=== PATIENT | male | born 1955 | race Caucasian/White ===

== ENCOUNTER → 2018-07-01 | Outpatient (CLI) | payer MEDICARE, OTHER | LOC: CPPFTMAIN 13:28 | PROVIDERS: ATTEND Family Medicine | DX: R06.09 Other forms of dyspnea (principal) | CPT/HCPCS: 94060; 94726; 94729 ==

== ENCOUNTER → 2022-07-04 | Outpatient (CLI) | payer MEDICARE ==
[2022-07-04 16:10] LABS: INR 0.9 (<1.2); Partial Thromboplastin Time 24.6 sec (22.0-30.0); Prothrombin Time 9.8 sec (9.0-12.0)
[2022-07-04 23:17] LABS: Appearance,Urine Clear (Clear); Bilirubin,Urine Negative (Negative); Blood,Urine Negative (Negative); Color,Urine Yellow (Yellow); Ketones,Urine Negative (Negative); Nitrite,Urine Negative (Negative); Specific Gravity,Urine 1.014 (1.001-1.030); Urobilinogen,Urine 0.2 (0.2,1.0)
[2022-07-04 23:37] LABS: HCT 43.4 % (39.6-50.0); HGB 14.2 g/dL (13.0-17.0); MCH 30.7 pg (27.0-32.0); MCHC 32.7 g/dL (32.0-37.0); MCV 93.7 fL (80.0-97.0); Mean Platelet Volume 9.8 fL (9.5-12.2); NRBC Per 100 WBC 0 /100 WBCS (0.0-0.0); Platelet Count 238 X 10*3/uL (140-440); RBC 4.63 X 10*6/uL (4.40-5.60); RDW 13.6 % (11.5-14.5); WBC 5.62 X 10*3/uL (4.50-10.00)
[2022-07-04 23:45] LABS: Albumin 4.6 g/dL (3.8-4.9); Albumin/Globulin Ratio 2.3 (1.60-3.17); Anion Gap 10.2 mmol/L (10.00-18.00); BUN/Creat Ratio 16.25 Ratio (12.00-20.00); Blood Urea Nitrogen 13.8 mg/dL (9.0-27.0); Calcium 9.3 mg/dL (8.7-10.3); Carbon Dioxide 26.2 mmol/L (20.0-27.5); Non-African American GFR(CKD) 91.5 (60.0-200.0); Potassium 4.6 mmol/L (3.5-5.5); Total Bilirubin 0.4 mg/dL (0.30-1.20); Total Protein 6.6 g/dL (6.2-8.2)
== END | disposition home or self-care (01) ==
LOC: LABPAT 15:29
PROVIDERS: ATTEND Orthopaedic Surgery Sports Medicine
DX: Z01.812 Encounter for preprocedural laboratory examination (principal); M17.12 Unilateral primary osteoarthritis, left knee; R00.1 Bradycardia, unspecified; R94.31 Abnormal electrocardiogram [ECG] [EKG]
CPT/HCPCS: 80053; 81003; 85027; 85610; 85730; 87070; 93005

== ENCOUNTER 2022-08-02 09:10 | Observation (INO) | payer MEDICARE ==
[2022-07-30 18:13] VITALS: BMI 30.8
[~2022-08-02 09:10] MED LIST: ACETAMINOPHEN TAB 500 MG TAB PO PRN; GABAPENTIN 300 MG CAP PO PRN; LACTATED RINGERS 1,000 ML IV SCH; MELOXICAM 7.5 MG TAB PO PRN; ONDANSETRON 4 MG/2 ML VIAL IVP PRN; TRANEXAMIC ACID IN NACL,ISO-OS 1,000 MG in SALINE 1 100ML.BAG IVPB PRN; fentaNYL (PF) 50 MCG/ML 2 ML AMP IV PRN
[2022-08-02] MEDS ORDERED: DEXAMETHASONE SOD PHOSPHATE 4 MG/ML 1 ML VIAL IVP ONE (10:18)
[2022-08-02] MEDS ORDERED: MIDAZOLAM 2 MG/2 ML VIAL IVP ONE (10:38)
[2022-08-02] MEDS ORDERED: ONDANSETRON 4 MG/2 ML VIAL IVP PRN (11:19)
[2022-08-02] MEDS ORDERED: traMADol 50 MG TAB PO PRN (11:19)
[2022-08-02] MEDS ORDERED: bisacodyL 10 MG SUPP RECTAL PRN (11:19)
[2022-08-02] MEDS ORDERED: hydrOXYzine pamoate 25 MG CAP PO PRN (11:19)
[2022-08-02] MEDS ORDERED: HYDROmorphone 0.5 MG/0.5 ML SYRINGE IVP PRN ×2 (11:19)
[2022-08-02] MEDS ORDERED: NA PHOS,M-B/NA PHOS,DI-BA 133 ML ENEMA RECTAL PRN (11:19)
[2022-08-02] MEDS ORDERED: MAGNESIUM HYDROXIDE 2,400 MG/10 ML CUP PO PRN (11:19)
[2022-08-02] MEDS ORDERED: TEMAZEPAM 15 MG CAP PO PRN (11:19)
[2022-08-02] MEDS ORDERED: NALOXONE 0.4 MG/ML 1 ML VIAL IV PRN (11:19)
[2022-08-02] MEDS ORDERED: diazePAM 5 MG TAB PO PRN (11:19)
[2022-08-02] MEDS ORDERED: ACETAMINOPHEN TAB 325 MG TAB PO PRN (11:19)
[2022-08-02] MEDS ORDERED: oxyCODONE-APAP 7.5-325MG 1 EACH TAB PO PRN (11:22)
[2022-08-02] MEDS ORDERED: ROPIVACAINE 5 MG/ML 30 ML VIAL ONE (11:33)
[2022-08-02] MEDS ORDERED: fentaNYL (PF) 50 MCG/ML 2 ML AMP ONE (11:33)
[2022-08-02] MEDS ORDERED: PROPOFOL 10 MG/ML 20 ML VIAL IV ONE (11:33)
[2022-08-02] MEDS ORDERED: MIDAZOLAM 2 MG/2 ML VIAL ONE (11:33)
[2022-08-02] MEDS ORDERED: TRANEXAMIC ACID IN NACL,ISO-OS 1,000 MG/100 ML BAG ONE (11:33)
[2022-08-02] MEDS ORDERED: KETAMINE 10 MG/ML 20 ML VIAL ONE (11:33)
[2022-08-02] MEDS ORDERED: DEXAMETHASONE SOD PHOSPHATE 4 MG/ML 1 ML VIAL ONE (11:33)
[2022-08-02] MEDS ORDERED: LACTATED RINGERS 1,000 ML IV ONE (12:00)
[2022-08-02] MEDS ORDERED: ROPIVACAINE 1,100 MG, SODIUM CHLORIDE 0.9% 500 ML 330 ML, EMPTY PAIN BALL 1 EACH MISCELLANE PRN ×2 (14:00)
[2022-08-02] MEDS: HYDROmorphone 0.5 MG/0.5 ML SYRINGE IVP PRN ×3 (14:40→15:09)
[2022-08-02] MEDS: LACTATED RINGERS 1,000 ML IV SCH ×2 (15:42→21:05)
[2022-08-02] MEDS: HYDROmorphone 1 MG/ML 1 ML SYRINGE IVP PRN ×3 (16:05→23:43)
--- NOTE | 2022-08-02 16:17 | XR ---
EXAMINATION TYPE: XR knee limited LT DATE OF EXAM: 08/02/2022 COMPARISON: NONE HISTORY: 66-year-old male evaluation for postoperative abnormality and alignment TECHNIQUE: 2 views FINDINGS: Images show placement of left total knee arthroplasty. Both distal femoral and proximal tib ial components of the prosthesis are well seated without fracture. Alignment grossly anatomic. Anteri or soft tissue swelling with scattered soft tissue air as well as intra-articular air related to rece nt operation. IMPRESSION: Uncomplicated postoperative appearance left total knee arthroplasty.
--- NOTE | 2022-08-02 17:19 | P.CONS ---
History of Present Illness - Reason for Consult Consult date: 08/02/22 Medical management Requesting physician: Uday Lamb - History of Present Illness History of Presenting Illness: Patient is a very pleasant 66-year-old male with a past medical history of CAD status post stent, hyperlipidemia, obstructive sleep apnea previously on home CPAP states stopped using a couple years ago, history of provoked DVT in 1992, and occasional marijuana use. Patient currently admitted under orthopedic surgery team and is status postleft total knee replacement. We have been consulted for medical management throughout hospitalization. Patient seen and fully evaluated at bedside. Patient currently reports uncontrolled postoperative pain to left knee and being medicated by RN at this time. Otherwise patient denies having any other complaints at this time including headache, lightheadedness, dizziness, chest pain, palpitations, shortness of breath, cough or congestion, abdominal pain or experiencing any episodes of postoperative nausea or vomiting. Movement and sensation remains intact to lower extremities. Review of systems: Pertinent positives and negatives as discussed in HPI, a complete review of systems was performed and all other systems are negative. Physical exam: Vital signs reviewed and stable. General: Nontoxic, no distress and appears stated age. Derm: Skin warm and dry, normal coloration for ethnicity. Head: Atraumatic, normocephalic and symmetric. Eyes: EOMs intact, no lid lag, and anicteric sclera Mouth: no lip lesions, mucus membranes moist Cardiovascular: regular rate and rhythm with normal S1S2, no murmur, positive posterior tibial pulses bilaterally, and cap refill < 2 seconds. Lungs: Respirations even, regular, and unlabored on room air. Lungs CTA bilaterally, no rhonchi, no rales, no wheezing, and no accessory muscle usage. Abdominal: soft, nontender to palpation, no guarding, no appreciable o rganomegaly Ext: movement and sensation intact. No gross muscle atrophy, no edema, no contractures. Postoperative dressing and Freddy wrap in place to left knee with ice pack. Neuro: Speech clear, face symmetrical and CN II-XII grossly intact with no noted focal neuro deficits Psych: Alert and oriented to person, place, time, and situation. Appropriate and pleasant affect. Assessment and Plan of Care: Status post left total knee arthroplasty Management per primary admitting orthopedic surgery team including DVT prophylaxis, pain management, wound/dressing care, weightbearing, and PT/OT. Patient currently on DVT prophylaxis with aspirin 81 mg twice a day. History of CAD status post stent Hyperlipidemia Obstructive sleep apnea BPH History of provoked DVT Home medications reviewed and reordered.patient to continue with atorvastatin 40 mg daily, Cymbalta 60 mg daily post scar 5 mg daily, Neurontin 400 mg 4 times daily, and Flomax 0.4 mg daily. Order placed for morning CBC, BMP, and magnesium. Will follow-up on these results and place additional orders as needed based upon these findings. Patient was seen independently by Nurse Practitioner. This document was prepared using [employer] dictation software. Please allow for errors in alligator trapper while rare they do occur. Thank you for allowing us to participate in the care of this pleasant patient. Do not hesitate to contact us with questions. Someone can be reached from the [facility] hospitalist group all hours of the day at [phone] or via [employer]. I reviewed the documentation as provided by the PAMELA above, who is the original author of this note. I agree with the documented assessment and plan, with the following changes: none Past Medical History Past Medical History: Coronary Artery Disease (CAD), COPD, Deep Vein Thrombosis (DVT), Hyperlipidemia, Osteoarthritis (OA), Prostate Disorder, Sleep Apnea/CPAP/BIPAP Additional Past Medical History / Comment(s): hx. DVT in 1992, back problems, hx. colon polyps History of Any Multi-Drug Resistant Organisms: None Reported Past Surgical History: Appendectomy, Heart Catheterization With Stent, Orthopedic Surgery, Tonsillectomy Additional Past Surgical History / Comment(s): arthroscopy knee, STENTS X3 LAD Past Anesthesia/Blood Transfusion Reactions: No Reported Reaction Date of Last Stent Placement:: 2018 Past Psychological History: Depression Smoking Status: Never smoker Past Alcohol Use History: None Reported Past Drug Use History: Marijuana Additional Drug Use History / Comment(s): daily use - Past Family History Father Family Medical History: Cancer Additional Family Medical History / Comment(s): MESOTHELIOMA Mother Additional Family Medical History / Comment(s): CARDIAC VALVE DISORDER Sister(s) Family Medical History: Cancer Additional Family Medical History / Comment(s): PANCREATIC CA. THYROID CA Medications and Allergies Home Medications Medication Instructions Recorded Confirmed Type HYDROcodone/APAP 10-325MG [[place] 1 tab PO Q6H PRN 12/06/15 07/30/22 History 10-325] Tamsulosin [Flomax] 0.4 mg PO DAILY 12/06/15 07/30/22 History tiZANidine [Zanaflex] 4 mg PO DIRECTED PRN 12/06/15 07/30/22 History Atorvastatin [Lipitor] 40 mg PO DAILY 07/30/22 07/30/22 History DULoxetine HCL [Cymbalta] 60 mg PO DAILY 07/30/22 07/30/22 History Finasteride [Proscar] 5 mg PO DAILY 07/30/22 07/30/22 History Gabapentin [Neurontin] 400 mg PO QID 07/30/22 07/30/22 History methocarbamoL [Methocarbamol] 750 mg PO DAILY 07/30/22 07/30/22 History Celecoxib [CeleBREX] 100 mg PO DAILY 08/02/22 08/02/22 History Aspirin [Adult Low Dose Aspirin EC] 81 mg PO BID #60 tab 08/03/22 Rx Docusate [Colace] 100 mg PO BID #60 capsule 08/03/22 Rx Ondansetron [Zofran] 4 mg PO Q8HR PRN #21 tab 08/03/22 Rx oxyCODONE-APAP 7.5-325MG [Percocet 1 tab PO Q4HR PRN #42 tab 08/03/22 Rx 7.5-325 mg] Allergies Allergy/AdvReac Type Severity Reaction Status Date / Time codeine Allergy Rash/Hives Verified 08/02/22 09:50 Physical Exam Vitals: Vital Signs Temp Pulse Pulse Pulse Resp BP Pulse Ox 08/02/22 15:56 97.7 F 68 18 132/64 96 08/02/22 15:30 66 16 124/76 98 08/02/22 15:15 70 16 127/78 98 08/02/22 15:02 66 16 134/84 98 08/02/22 14:45 67 16 125/77 98 08/02/22 14:30 72 16 130/81 98 08/02/22 14:15 73 16 125/78 98 08/02/22 14:00 69 16 130/80 98 08/02/22 13:43 97.9 F 69 16 119/74 95 08/02/22 10:55 65 16 138/85 99 08/02/22 09:58 97.5 F L 67 16 133/77 97 Intake and Output 08/02/22 08/02/22 08/02/22 06:59 14:59 22:59 Intake Total 1999 Output Total 100 Balance 1900 Intake: IV 1999 Output: Estimated Blood Loss 100 Other: Weight 99.7 kg 99.7 kg Results CBC & Chem 7: 08/03/22 04:39 08/03/22 04:39
[2022-08-02] MEDS: oxyCODONE-APAP 7.5-325MG 1 EACH TAB PO PRN (18:02)
[2022-08-02] MEDS: GABAPENTIN 400 MG CAP PO SCH ×2 (18:02→20:54)
--- NOTE | 2022-08-02 20:22 | P.ANPRN ---
Procedure Note - Anesthesia - Nerve Block Performed Left Adductor Canal Infusion Time Out Performed: Yes Date of Procedure: 08/02/22 Procedure Start Time: 10:38 Procedure Stop Time: 10:46 Location of Patient: PreOp Indication: Acute Post-Operative Pain, Requested by Surgeon Sedation Type: Sedate with meaningful contact maintained Preparation: Sterile Prep, Sterile Dressing Position: Supine Catheter: Indwelling Needle Types: On-Q Needle Gauge: 21 Ultrasound used to visualize needle placement: Yes Ultrasound used to observe medication spread: Yes Blood Aspirated: No Pain Paresthesia on Injection Noted: No Resistance on Injection: Normal Image Stored and Saved: Yes Events: Uneventful and Well Tolerated (Ropivacaine 0.5% 20 mL plus dexamethasone 4 mg)
--- NOTE | 2022-08-02 20:23 | P.ANPRN ---
Procedure Note - Anesthesia - Nerve Block Performed Left iPack Single Time Out Performed: Yes Date of Procedure: 08/02/22 Procedure Start Time: 10:47 Procedure Stop Time: 10:51 Location of Patient: PreOp Indication: Acute Post-Operative Pain, Requested by Surgeon Sedation Type: Sedate with meaningful contact maintained Preparation: Sterile Prep Position: Supine Needle Types: Pajunk Needle Gauge: 21 Ultrasound used to visualize needle placement: Yes Ultrasound used to observe medication spread: Yes Blood Aspirated: No Pain Paresthesia on Injection Noted: No Resistance on Injection: Normal Image Stored and Saved: Yes Events: Uneventful and Well Tolerated (Ropivacaine 0.5% 20 mL plus dexamethasone 4 mg)
[2022-08-02] MEDS: ASPIRIN 81 MG PO SCH (20:54)
[2022-08-02] MEDS ORDERED: SENNOSIDES-DOCUSATE SODIUM 1 EACH TAB PO SCH (21:00)
--- NOTE | 2022-08-02 21:55 | OP ---
OPERATIVE REPORT DATE OF SERVICE : 08/02/2022 PREOPERATIVE DIAGNOSIS: Left knee osteoarthrosis. POSTOPERATIVE DIAGNOSIS: Left knee osteoarthrosis. PROCEDURE PERFORMED: Left total knee arthroplasty. ANESTHESIA: Spinal sedation. ESTIMATED BLOOD LOSS: 100 mL. TOURNIQUET TIME: 54 minutes at 250 mmHg. COMPLICATIONS: None apparent. DRAINS: None. DISPOSITION: Postanesthesia care unit. INDICATIONS: Mariano is a very pleasant 66-year-old male with longstanding history of left knee pain. History and physical examination are consistent with advanced left knee osteoarthrosis. He has been through significant nonoperative management at this point. Further treatment options were discussed. He decided to go forward with the left total knee arthroplasty. Risks of procedure were discussed with him in detail. These risks included, but were not limited to risk of infection, nerve damage, bleeding, pain, and a small risk of deep vein thrombosis which could lead to fatal pulmonary embolism. There is also a small risk of loosening of the implant, which could require revision operation. The patient understands these risks. All of his questions were answered to his satisfaction. Appropriate informed consent was obtained. DESCRIPTION OF PROCEDURE: The patient was identified in the preoperative holding area. Surgical site was marked by both the patient and myself. He was given 2 g of Ancef IV for prophylactic purposes. He was then transferred to the operative suite. He was placed supine on the operating room table. A spinal anesthetic was then administered and dosed per the Anesthesia Department without apparent complication. Examination under anesthesia was then performed. The patient was 3 to 5 degrees shy of full extension. He had 100 degrees of flexion. Medial collateral ligament, lateral collateral ligament, and posterior cruciate ligaments were stable. Tourniquet was then placed high on the left upper thigh well-padded in preparation for surgery. The patient's left lower extremity was then prepped and draped in usual sterile fashion. Standard surgical pause was undertaken to ensure that we were operating the correct site and that appropriate preoperative antibiotics had been given. All staff in the room were in agreement, and we proceeded. The outlines of the patella were marked with a surgical pen. A planned 12 cm vertical incision centered over the patella was marked with a surgical pen. The leg was then exsanguinated with an Esmarch dressing. The knee was then flexed, and the tourniquet was inflated to 250 mmHg. The total tourniquet time for the procedure was 54 minutes. Incision was then made with a 10-blade scalpel. Dissection was carried down sharply overlying the fascia. Great care was taken to minimize the skin flaps. The knee was then exposed using a standard medial parapatellar approach. A small cuff of quadriceps tendon was then left for suturing. He was in a bit of varus preoperatively. A standard medial release was then made. Superficial medial collateral ligament was dissected off the bone around to the posterior aspect of the proximal tibia. The medial meniscus was then excised as well. The lateral meniscus was also released anteriorly. The leg was then externally rotated. The patella was everted. The knee was flexed. Retractors were then placed to protect the collateral ligaments. I then proceeded to remove the infrapatellar fat pad. This was excised sharply tangentially with fibers of the patellar tendon. I then proceeded to remove the peripheral osteophytes. This was done with a rongeur. I then proceeded with the distal femoral resection. He did have a flexion contracture. A planned 11 mm resection was then done. The femoral canal was then entered in the midline of the femur approximately 10 mm anterior to the origin of the posterior cruciate ligament. The jarett was then advanced down to the center of the femur and placed intramedullary. Based on the preoperative radiographs, the angle between the anatomic and mechanical axis of the femur was approximately 4 to 5 degrees. The valgus angle of the distal femoral cutting guide was then set at 4 degrees for the left knee. The distal femoral cutting guide was then advanced over the intramedullary jarett. This was seated firmly against the femur. I then as mentioned planned to take 11 mm off the distal femur. The cutting block was then secured onto the femur with pins. Jig was then removed. The distal femoral cut was made through the slot of the block. The pins were removed. The distal femoral cutting block was removed. The accuracy of the distal femoral cuts was checked with 2 flat bars. I then proceeded with femoral sizing. Posterior referencing sizing guide was held firmly against the resected distal surface of the femur. The posterior condyles were resting on the posterior plane of the guide. The sizing stylus was then placed onto the anterior femur. The size was measured as a size 11. I then assessed for femoral rotation. Plan was for 3 degrees of external rotation. Three degrees of external rotation was placed onto the jig. These holes were then marked. I then confirmed the rotation by 3 separate methods. This was done using epicondylar axis as well as Whitesides line and posterior referencing. It was deemed that the external rotation was proper. I then went forward and placed the femoral cutting block. This was placed over the previously-placed pin holes. The [place] wing was then placed onto the anterior slots to ensure that we would not notch the anterior femur with the anterior femoral cut. I then proceeded with the anterior femoral cut. This was flush with the anterior cortex of the femur. The posterior cuts were then made followed by the anterior chamfer cut, then the posterior chamfer cut. The cutting block was then removed. Throughout the resection, the collateral ligaments were protected with retractors. I then placed a trial size 11 femur. It was slightly wide, but the narrow fit very nicely, and it fit flush with the distal end of the femur. The drill holes were then made. I then proceeded with the tibial cut. I planned for cruciate-retaining knee. The guide was placed and set for varus, valgus, and for slope. The height was set for approximately 2 mm resection from the medial tibial plateau, which was the lower side. I was happy with the alignment and the amount of resection. The cutting block was then pinned to the proximal tibia. The alignment jarett was removed. Proximal tibia was resected with a reciprocating saw. Again, this was done with retractors protecting the collateral ligaments as well as the posterior cruciate ligament. I then proceeded to evaluate the flexion and extension gaps. A 10 mm block was then placed. The flexion and extension gaps were equal. I then proceeded with resection of the posterior osteophytes. He had very extensive posterior osteophytes. This was done using a curved osteotome. This resected the posterior osteophytes, and posterior capsular stripping was done off the posterior aspect of the femur at this time. The osteophytes were then removed. I then proceeded with resection of the patella. The thickness of the patella was measured using the caliper. The thickness was 26 mm. The thickness of the anticipated patellar dome was taken into account. Resection was performed and confirmed to be equal in 4 quadrants using a caliper. Approximately 14 mm of bone remained after resection. A 35 x 9 standard patellar trial was then placed. The holes were drilled, and the trial was then placed. I then proceeded with sizing the tibial plate. A size G tibial plate fit very nicely. I then placed the trial femur, the tibial tray, and the patellar button. A 10 mm trial tibial insert was also placed. The components fit very nicely. He had full extension and flexion. The extension and flexion gaps were equal and stable with varus and valgus stress. The patella tracked appropriately. The tibial tray rotation was then marked with a Bovie. This was externally rotated properly. I then proceeded with tibial preparation. I first drilled the femoral holes and removed the femoral component. The tibial tray was then set for proper external rotation as well as medial and lateral placement onto the tibia. It was then pinned into place. I then proceeded with punching the keel. I then proceeded with cementing of all of our components. The knee was thoroughly irrigated with sterile saline solution via pulsed lavage. The lateral genicular artery was identified and cauterized. All blood was removed from the bone of the tibia, femur, and patella with pulsed lavage. I then proceeded with cementing. Two packs of antibiotic bone cement prepared on the back table by the biochemistry technologist. I then proceeded with cementing the tibia first. The cement was impacted into the keel as well as deeply seated into the bone. A second coat of cement was then placed. The tibia was then impacted into place. Excess cement was removed with Blackwater's and Joker's. I then proceeded with cementing of the femoral component. The femoral component was also cemented using standard technique. Excess cement was removed. A 10 mm trial insert was then placed into the knee. It was brought into full extension with a constant axial load placed until the cement had hardened. The patellar component was then cemented. This was held firmly with a compressive device until the cement had dried. When the cement had dried, the knee was taken out of extension. All excess cement was removed from around the prosthesis. I then trialed the knee with a 10 mm insert. The flexion and extension gaps were appropriate. The knee was stable. It came into full extension. I decided to go forward with a 10 mm Medial Congruent cross-linked cruciate- retaining tibial insert. Polyethylene was then placed onto the tibial tray and locked into place. The knee was then reduced. The knee was again further irrigated with sterile saline solution with antibiotic added. The tourniquet was then deflated. Total tourniquet time for the procedure was 54 minutes at 250 mmHg. Final components were Devon Persona size 11 narrow cruciate-retaining femoral component, size D tibial tray, a 10 mm Medial Congruent cruciate-retaining polyethylene insert, and a 35 x 9 mm patella. I then proceeded with closure. Again, the knee was thoroughly irrigated. The quadriceps tendon and the medial retinaculum were reapproximated with a #2 Ethibond suture. The extensor mechanism was then closed with a running #2 Quill suture. Subcutaneous tissues were closed with 2-0 Vicryl interrupted suture. The skin was closed with a running 3-0 Quill suture. Dermabond was applied to the incision. Sterile compressive dressing was then applied. All sponge and needle counts were deemed correct prior to closure. The patient tolerated the procedure without apparent complication. He was transferred to the recovery room in stable condition. MMODL / IJN: [id number] /
[2022-08-03] MEDS: oxyCODONE-APAP 7.5-325MG 1 EACH TAB PO PRN ×2 (01:35→08:15)
[2022-08-03] MEDS: HYDROmorphone 1 MG/ML 1 ML SYRINGE IVP PRN ×3 (04:21→15:24)
[2022-08-03] MEDS: ASPIRIN 81 MG PO SCH (08:14)
[2022-08-03] MEDS: GABAPENTIN 400 MG CAP PO SCH ×2 (08:17→15:25)
[2022-08-03 08:26] VITALS: RESP 18
[2022-08-03] MEDS ORDERED: ATORVASTATIN 40 MG TAB PO SCH (09:00)
[2022-08-03] MEDS ORDERED: FINASTERIDE 5 MG TAB PO SCH (09:00)
[2022-08-03] MEDS ORDERED: DULoxetine HCL 60 MG CAPSULE.DR PO SCH (09:00)
[2022-08-03] MEDS ORDERED: TAMSULOSIN 0.4 MG CAP.ER.24H PO SCH (09:00)
[2022-08-03 09:36] LABS: African American GFR (CKD) 114.8 (60.0-200.0); Anion Gap 7.8 mmol/L (10.00-18.00); BUN/Creat Ratio 19.14 Ratio (12.00-20.00); Blood Urea Nitrogen 13.4 mg/dL (9.0-27.0); Calcium 9.1 mg/dL (8.7-10.3); Carbon Dioxide 25.2 mmol/L (20.0-27.5); Magnesium 1.9 mg/dL (1.5-2.4); Potassium 4.3 mmol/L (3.5-5.5)
[2022-08-03 09:44] LABS: Basophils # (A) 0.02 X 10*3/uL (0.00-0.10); Basophils % (A) 0.2 %; Eosinophils # (A) 0 X 10*3/uL (0.04-0.35); Eosinophils % (A) 0 %; HCT 38.3 % (39.6-50.0); HGB 12.4 g/dL (13.0-17.0); Immature Grans, Automated 0.4 %; Lymphocytes # (A) 1.45 X 10*3/uL (0.90-5.00); Lymphocytes % (A) 14.3 %; MCH 31.2 pg (27.0-32.0); MCHC 32.4 g/dL (32.0-37.0); MCV 96.5 fL (80.0-97.0); Mean Platelet Volume 10.2 fL (9.5-12.2); Monocytes # (A) 1.11 X 10*3/uL (0.20-1.00); NRBC Per 100 WBC 0 /100 WBCS (0.0-0.0); Neutrophils # (A) 7.49 X 10*3/uL (1.80-7.70); Neutrophils % (A) 74.1 %; Platelet Count 223 X 10*3/uL (140-440); RBC 3.97 X 10*6/uL (4.40-5.60); RDW 13.6 % (11.5-14.5); WBC 10.11 X 10*3/uL (4.50-10.00)
--- NOTE | 2022-08-03 10:52 | P.PN ---
Progress Note - Text 08/03/22 642am 66-year-old male status post total knee replacement by Dr. Lamb. Patient has an On-Q pump for postop pain control with the solution running at 8 mL an hour with a VAS of 0, patient has pain predominantly located posteriorly . Dressing clean dry and intact and to continue On-Q pump infusion
[2022-08-03] MEDS ORDERED: MULTIVITAMINS, THERA 1 EACH TAB PO SCH (12:00)
[2022-08-03 14:39] VITALS: BP 151/84; PULSE 82; TEMP 98.6
--- NOTE | 2022-08-03 15:03 | P.PN ---
Subjective Progress Note Date: 08/03/22 Hospital course: Patient is a very pleasant 66-year-old male with a past medical history of CAD status post stent, hyperlipidemia, obstructive sleep apnea previously on home CPAP states stopped using a couple years ago, history of provoked DVT in 1992, and occasional marijuana use. Patient currently admitted under orthopedic surgery team and is status postleft total knee replacement. We have been consulted for medical management throughout hospitalization. Physical exam: Patient was seen and fully evaluated at the bedside this morning. Patient reports pain to left knee is currently uncontrolled at this time, but was just medicated with 2 Percocets. Patient denies having any other complaints at this time including headache, lightheadedness, dizziness, chest pain, palpitations, shortness of breath, or experiencing any focal numbness or weakness. Morning labs reviewed. CBC showing mild leukocytosis with WBC count of 10.11 and mild postoperative blood loss anemia with hemoglobin of 12.4 and stable. BMP was unremarkable and magnesium also normal findings at 1.9. Vital signs reviewed and stable with morning BP 141/81, heart rate 66, and respiratory rate of 18 with SpO2 of 98% on room air. General: Nontoxic, no distress and appears stated age. Derm: Skin warm and dry, normal coloration for ethnicity. Head: Atraumatic, normocephalic and symmetric. Eyes: EOMs intact, no lid lag, and anicteric sclera Mouth: no lip lesions, mucus membranes moist Cardiovascular: regular rate and rhythm with normal S1S2, no murmur, positive posterior tibial pulses bilaterally, and cap refill < 2 seconds. Lungs: Respirations even, regular, and unlabored on room air. Lungs CTA bilaterally, no rhonchi, no rales, no wheezing, and no accessory muscle usage. Abdominal: soft, nontender to palpation, no guarding, no appreciable organomegaly Ext: movement and sensation intact. No gross muscle atrophy, no edema, no contractures. Postoperative dressing and Freddy wrap in place to left knee with ice pack. Neuro: Speech clear, face symmetrical and CN II-XII grossly intact with no noted focal neuro deficits Psych: Alert and oriented to person, place, time, and situation. Appropriate and pleasant affect. Assessment and Plan of Care: Status post left total knee arthroplasty Management per primary admitting orthopedic surgery team including DVT prophylaxis, pain management, wound/dressing care, weightbearing, and PT/OT. Patient currently on DVT prophylaxis with aspirin 81 mg twice a day. Postoperative blood loss anemia, expected finding Leukocytosis, reactive Morning labs reviewed. CBC showing mild leukocytosis with WBC count of 10.11 and mild postoperative blood loss anemia with hemoglobin of 12.4 and stable. BMP was unremarkable and magnesium also normal findings at 1.9. Reviewed preoperative and postoperative labs. CBC showing a preoperative hemog lobin of 14.2 with postoperative hemoglobin decreasing to 12.4 and stable. No need for transfusion or any other interventions at this time. Patient medically stable for discharge and may be discharged once cleared by primary admitting orthopedic surgery team. History of CAD status post stent Hyperlipidemia Obstructive sleep apnea BPH History of provoked DVT Patient to continue with atorvastatin 40 mg daily, Cymbalta 60 mg daily post scar 5 mg daily, Neurontin 400 mg 4 times daily, and Flomax 0.4 mg daily. Order placed for morning CBC, BMP, and magnesium. Will follow-up on these results and place additional orders as needed based upon these findings. Patient was seen independently by Nurse Practitioner. This document was prepared using [employer] dictation software. Please allow for errors in bobcat driver/labor while rare they do occur. Thank you for allowing us to participate in the care of this pleasant patient. Do not hesitate to contact us with questions. Someone can be reached from the [facility] hospitalist group all hours of the day at [phone] or via [email or web address]. I reviewed the documentation as provided by the PAMELA above, who is the original author of this note. I agree with the documented assessment and plan, with the following changes: none Objective - Vital Signs Vital signs: Vital Signs Temp 98.0 F 08/03/22 07:15 Pulse 66 08/03/22 07:15 Resp 18 08/03/22 07:15 BP 141/81 08/03/22 07:15 Pulse Ox 98 08/03/22 07:15 FiO2 Intake & Output 08/02/22 08/03/22 08/03/22 18:59 06:59 18:59 Intake Total 2000 Output Total 100 Balance 1900 Weight 99.7 kg Intake: IV 1999 Output: Estimated Blood Loss 100 Other: # Voids 2 - Labs CBC & Chem 7: 08/03/22 04:39 08/03/22 04:39 Labs: Abnormal Lab Results - Last 24 Hours (Table) 08/03/22 08/03/22 Range/Units 04:39 04:39 WBC 10.11 H (4.50-10.00) X 10*3/uL RBC 3.97 L (4.40-5.60) X 10*6/uL Hgb 12.4 L (13.0-17.0) g/dL Hct 38.3 L (39.6-50.0) % Monocytes # 1.11 H (0.20-1.00) X 10*3/uL Eosinophils # 0 L (0.04-0.35) X 10*3/uL Anion Gap 7.80 L (10.00-18.00) mmol/L
== END 2022-08-03 16:23 | disposition home health service (06) ==
LOC: OR 09:10 → 4SSUR 13:56 → OR 08-03 07:56 → 4SSUR 08-03 07:56
PROVIDERS: ADMIT Orthopaedic Surgery Sports Medicine; ATTEND Orthopaedic Surgery Sports Medicine
DX: M17.12 Unilateral primary osteoarthritis, left knee (principal); G89.18 Other acute postprocedural pain; J44.9 Chronic obstructive pulmonary disease, unspecified; I25.10 Atherosclerotic heart disease of native coronary artery without angina pectoris; E78.5 Hyperlipidemia, unspecified; G47.33 Obstructive sleep apnea (adult) (pediatric); N40.0 Benign prostatic hyperplasia without lower urinary tract symptoms; H91.90 Unspecified hearing loss, unspecified ear; F32.A Depression, unspecified; Z79.1 Long term (current) use of non-steroidal anti-inflammatories (NSAID); Z79.82 Long term (current) use of aspirin; Z79.899 Other long term (current) drug therapy; Z88.5 Allergy status to narcotic agent; Z86.010 Personal history of colon polyps; Z86.718 Personal history of other venous thrombosis and embolism; Z97.3 Presence of spectacles and contact lenses; Z95.5 Presence of coronary angioplasty implant and graft; Z90.49 Acquired absence of other specified parts of digestive tract; Z98.890 Other specified postprocedural states; Z80.8 Family history of malignant neoplasm of other organs or systems; Z80.0 Family history of malignant neoplasm of digestive organs; Z82.49 Family history of ischemic heart disease and other diseases of the circulatory system; Z83.3 Family history of diabetes mellitus
CPT/HCPCS: 97162; 64999; 64448; 76942; 80048; 83735; 85025; 88300; 73560; 27447; G0378; C1776; C1713; C1751; S0138; J2250; J1100; J0690 ×2; J2405; J3010; J1170 ×3; J2795; J2704

== ENCOUNTER → 2023-05-07 | Outpatient (CLI) | payer MEDICARE ==
[2023-05-07 13:15] LABS: Partial Thromboplastin Time 24.5 sec (22.0-30.0)
[2023-05-07 17:46] LABS: ALT 17 U/L (10-49); AST 13 U/L (14-35); Albumin 4.7 g/dL (3.8-4.9); Albumin/Globulin Ratio 2.24 Ratio (1.60-3.17); Alkaline Phosphatase 76 U/L (41-126); BUN/Creat Ratio 21.75 Ratio (12.00-20.00); Blood Urea Nitrogen 17.4 mg/dL (9.0-27.0); Calcium 9.7 mg/dL (8.7-10.3); Chloride 104 mmol/L (96-109); Globulin 2.1 g/dL (1.6-3.3); Glucose 90 mg/dL (70-110); Potassium 5.3 mmol/L (3.5-5.5); Sodium 140 mmol/L (135-145); Total Bilirubin 0.4 mg/dL (0.3-1.2); Total Protein 6.8 g/dL (6.2-8.2)
[2023-05-07 19:41] LABS: HCT 46.2 % (39.6-50.0); HGB 15.1 g/dL (13.0-17.0); MCH 30.9 pg (27.0-32.0); MCHC 32.7 g/dL (32.0-37.0); MCV 94.7 FL (80.0-97.0); Mean Platelet Volume 9.7 FL (9.5-12.2); NRBC Per 100 WBC 0 X 10*3/uL (0.00-0.01); Platelet Count 258 X 10*3/uL (140-440); RBC 4.88 X 10*6/uL (4.40-5.60); RDW 13.4 % (11.5-14.5); WBC 6.82 X 10*3/uL (4.50-10.00)
[2023-05-07 20:29] LABS: INR 0.9 (<1.2); Prothrombin Time 10.4 sec (10.0-12.5)
== END | disposition home or self-care (01) ==
LOC: LABPAT 11:54
PROVIDERS: ATTEND Orthopaedic Surgery Sports Medicine
DX: Z01.812 Encounter for preprocedural laboratory examination (principal); Z22.322 Carrier or suspected carrier of Methicillin resistant Staphylococcus aureus; M17.11 Unilateral primary osteoarthritis, right knee
CPT/HCPCS: 80053; 85027; 85610; 85730; 87070

== ENCOUNTER → 2023-06-06 | Day surgery (SDC) | payer MEDICARE ==
[2023-05-31 12:37] VITALS: BMI 30.1
[~2023-06-06] MED LIST changes: +DEXAMETHASONE SOD PHOSPHATE 4 MG/ML 1 ML VIAL IV ONE; +HYDROmorphone 0.5 MG/0.5 ML SYRINGE IVP PRN; -LACTATED RINGERS 1,000 ML IV SCH; +LIDOCAINE 1% (10MG/ML) FOR IV START INTRADERMA PRN; +MIDAZOLAM 2 MG/2 ML VIAL IV PRN; +ONDANSETRON 4 MG/2 ML VIAL IVP ONE; +TRANEXAMIC 1,000 MG/100ML-NACL 1,000 MG in SALINE 1 100ML.BAG IVPB PRN; -TRANEXAMIC ACID IN NACL,ISO-OS 1,000 MG in SALINE 1 100ML.BAG IVPB PRN; -fentaNYL (PF) 50 MCG/ML 2 ML AMP IV PRN
[2023-06-06] MEDS: LACTATED RINGERS 1,000 ML IV SCH (05:57)
== END ==
LOC: OR 05:37
PROVIDERS: ATTEND Orthopaedic Surgery Sports Medicine
DX: Z53.8 Procedure and treatment not carried out for other reasons (principal); M17.11 Unilateral primary osteoarthritis, right knee

== ENCOUNTER → 2023-06-14 | Outpatient (CLI) | payer MEDICARE ==
[2023-06-14 16:44] LABS: INR 0.9 (<1.2); Partial Thromboplastin Time 24.9 sec (22.0-30.0); Prothrombin Time 10.2 sec (10.0-12.5)
[2023-06-14 18:40] LABS: HCT 43.5 % (39.6-50.0); HGB 14.4 g/dL (13.0-17.0); MCH 30.8 pg (27.0-32.0); MCHC 33.1 g/dL (32.0-37.0); MCV 93.1 FL (80.0-97.0); Mean Platelet Volume 9.4 FL (9.5-12.2); NRBC Per 100 WBC 0 X 10*3/uL (0.00-0.01); Platelet Count 252 X 10*3/uL (140-440); RBC 4.67 X 10*6/uL (4.40-5.60); RDW 13.4 % (11.5-14.5); WBC 4.85 X 10*3/uL (4.50-10.00)
[2023-06-15 03:49] LABS: ALT 12 U/L (10-49); AST 14 U/L (14-35); Albumin 4.4 g/dL (3.8-4.9); Alkaline Phosphatase 83 U/L (41-126); BUN/Creat Ratio 18.88 Ratio (12.00-20.00); Blood Urea Nitrogen 15.1 mg/dL (9.0-27.0); Calcium 9.3 mg/dL (8.7-10.3); Carbon Dioxide 27.1 mmol/L (21.6-31.8); Chloride 104 mmol/L (96-109); Globulin 2.2 g/dL (1.6-3.3); Glucose 79 mg/dL (70-110); Potassium 4.7 mmol/L (3.5-5.5); Sodium 137 mmol/L (135-145); Total Bilirubin 0.3 mg/dL (0.3-1.2); Total Protein 6.6 g/dL (6.2-8.2)
== END | disposition home or self-care (01) ==
LOC: LABPAT 15:02
PROVIDERS: ATTEND Orthopaedic Surgery Sports Medicine
DX: Z01.812 Encounter for preprocedural laboratory examination (principal); M17.11 Unilateral primary osteoarthritis, right knee; Z22.322 Carrier or suspected carrier of Methicillin resistant Staphylococcus aureus
CPT/HCPCS: 36415; 80053; 85027; 85610; 85730; 87070

== ENCOUNTER 2023-06-20 05:33 | Observation (INO) | payer MEDICARE ==
[~2023-06-20 05:33] MED LIST changes: -ACETAMINOPHEN TAB 500 MG TAB PO PRN; -DEXAMETHASONE SOD PHOSPHATE 4 MG/ML 1 ML VIAL IV ONE; -GABAPENTIN 300 MG CAP PO PRN; -HYDROmorphone 0.5 MG/0.5 ML SYRINGE IVP PRN; -MELOXICAM 7.5 MG TAB PO PRN; -MIDAZOLAM 2 MG/2 ML VIAL IV PRN; -ONDANSETRON 4 MG/2 ML VIAL IVP ONE; -ONDANSETRON 4 MG/2 ML VIAL IVP PRN
[2023-06-20] MEDS: GABAPENTIN 300 MG CAP PO PRN (06:00)
[2023-06-20] MEDS: LIDOCAINE 1% (10MG/ML) FOR IV START INTRADERMA ONE (06:00)
[2023-06-20] MEDS: LACTATED RINGERS 1,000 ML IV SCH ×2 (06:00→10:54)
[2023-06-20] MEDS: ACETAMINOPHEN TAB 500 MG TAB PO PRN (06:00)
[2023-06-20] MEDS: MELOXICAM 7.5 MG TAB PO PRN (06:00)
[2023-06-20] MEDS: DEXAMETHASONE SOD PHOSPHATE 4 MG/ML 1 ML VIAL IVP ONE (06:05)
[2023-06-20] MEDS: ONDANSETRON 4 MG/2 ML VIAL IVP PRN (06:05)
[2023-06-20] MEDS: MIDAZOLAM 2 MG/2 ML VIAL IVP ONE (06:42)
[2023-06-20] MEDS ORDERED: TRANEXAMIC 1,000 MG/100ML-NACL PREMIX BAG ONE (07:00)
[2023-06-20] MEDS ORDERED: KETAMINE HCL IN 0.9 % NACL 50 MG/5 ML SYRINGE ONE (07:00)
[2023-06-20] MEDS ORDERED: LIDOCAINE 1% INJ 10MG/ML (20 ML MDV) ONE (07:00)
[2023-06-20] MEDS ORDERED: MIDAZOLAM 2 MG/2 ML VIAL IV PRN (07:00)
[2023-06-20] MEDS ORDERED: MIDAZOLAM 2 MG/2 ML VIAL ONE (07:00)
[2023-06-20] MEDS ORDERED: PROPOFOL 10 MG/ML 20 ML VIAL IV ONE (07:00)
[2023-06-20] MEDS ORDERED: ROPIVACAINE 5 MG/ML 30 ML VIAL ONE (07:00)
[2023-06-20] MEDS ORDERED: DEXAMETHASONE SOD PHOSPHATE 4 MG/ML 1 ML VIAL ONE (07:00)
[2023-06-20] MEDS: ceFAZolin 3,000 MG in SODIUM CHLORIDE 0.9% IRRIGATIO 3,000 ML IRRIGATION ONE (07:03)
[2023-06-20] MEDS ORDERED: ONDANSETRON 4 MG/2 ML VIAL IVP PRN (07:12)
[2023-06-20] MEDS ORDERED: HYDROmorphone 0.5 MG/0.5 ML SYRINGE IVP PRN ×2 (07:12)
[2023-06-20] MEDS ORDERED: bisacodyL 10 MG SUPP RECTAL PRN (07:12)
[2023-06-20] MEDS ORDERED: MAGNESIUM HYDROXIDE 2,400 MG/30 ML CUP PO PRN (07:12)
[2023-06-20] MEDS ORDERED: NALOXONE 0.4 MG/ML 1 ML VIAL IV PRN (07:12)
[2023-06-20] MEDS ORDERED: NA PHOS,M-B/NA PHOS,DI-BA 133 ML ENEMA RECTAL PRN (07:12)
[2023-06-20] MEDS ORDERED: oxyCODONE-APAP 7.5-325MG 1 EACH TAB PO PRN (07:15)
[2023-06-20] MEDS: LACTATED RINGERS 1,000 ML IV ONE (07:45)
[2023-06-20] MEDS: ROPIVACAINE 1,100 MG, SODIUM CHLORIDE 0.9% 500 ML 330 ML, EMPTY PAIN BALL 1 EACH MISCELLANE PRN (09:16)
[2023-06-20] MEDS: HYDROmorphone 0.5 MG/0.5 ML SYRINGE IVP PRN ×2 (09:24→12:49)
--- NOTE | 2023-06-20 09:39 | XR ---
EXAMINATION TYPE: XR knee limited 2 views RT DATE OF EXAM: 06/20/2023 Comparison: None Clinical History: 67-year-old male Evaluation for Postop abnormality and alignment Findings: Images show placement of right total knee arthroplasty. Both distal femoral and proximal tibial compo nents of prosthesis are well seated without periprosthetic fracture. Alignment grossly anatomic. Ante rior soft tissue swelling with soft tissue air as well as some intra-articular air related to recent operation. Some loose bodies are noted posteromedially measuring up to 7 mm, probably within a Bueno' s cyst Impression: Uncomplicated postoperative appearance right total knee arthroplasty. A couple loose bodies measuring up to 7 mm located posterolaterally, probably within a Bueno's cyst.
[2023-06-20] MEDS: oxyCODONE-APAP 7.5-325MG 1 EACH TAB PO PRN (10:32)
[2023-06-20] MEDS: ONDANSETRON 4 MG/2 ML VIAL IVP ONE (10:54)
[2023-06-20] MEDS: DEXAMETHASONE SOD PHOSPHATE 4 MG/ML 1 ML VIAL IV ONE (10:54)
--- NOTE | 2023-06-20 10:58 | OP ---
OPERATIVE REPORT DATE OF SERVICE : 06/20/2023 HEALTH ADMINISTRATOR: Bryan Vilchis PA-C. PREOPERATIVE DIAGNOSIS: Right knee osteoarthrosis. POSTOPERATIVE DIAGNOSIS: Right knee osteoarthrosis. OPERATION: Right total knee arthroplasty. ANESTHESIA: Spinal with sedation. ESTIMATED BLOOD LOSS: 100 mL. TOURNIQUET TIME: 50 minutes at 250 mmHg. COMPLICATIONS: None apparent. DRAINS: None. DISPOSITION: Postanesthesia care unit. INDICATIONS: Mariano is a very pleasant 67-year-old male with longstanding history of right knee pain. History and physical examination are consistent with advanced right knee osteoarthrosis. He has been through significant operative management up to this point. Further treatment options were discussed, and he decided to go forward with a right total knee arthroplasty. The risks of procedure were discussed with him in detail. These risks include, but are not limited to risk of infection, nerve damage, bleeding, pain, and a small risk of deep vein thrombosis which could lead to fatal pulmonary embolism. There is also small risk of loosening of the implant, which could require revision operation. The patient understands these risks. All of his questions with regard to the procedure were answered to his satisfaction. Appropriate informed consent was obtained. DESCRIPTION OF PROCEDURE: The patient was identified in the preoperative holding area. Surgical site was marked by both the patient and myself. He was given 2 g of Ancef IV for prophylactic purposes. He was then transported to the operative suite. He was placed supine on the operating room table. A spinal anesthetic was then administered and dosed per the Anesthesia Department without apparent complication. Examination under anesthesia was then performed. The patient was 2 to 3 degrees shy of full extension. He had 100 degrees of flexion in the medial collateral ligament, lateral collateral ligament, and posterior cruciate ligaments were stable. A tourniquet was then placed high on the right upper thigh well-padded in preparation for surgery. The patient's right lower extremity was then prepped and draped in the usual sterile fashion. Standard surgical pause was undertaken to ensure that we were operating the correct site and that appropriate preoperative antibiotics had been given. All staff in the room were in agreement, and we proceeded. The outlines of the patella were marked with a surgical pen. A planned 12 cm vertical incision centered over the patella was marked with a surgical pen. Legs were then exsanguinated with an Esmarch dressing. The knee was then flexed, and tourniquet was inflated to 250 mmHg. The total tourniquet time for the procedure was 50 minutes. Incision was then made with a 10-blade scalpel. Dissection was carried down sharply overlying fascia. Great care was taken to minimize the skin flaps. The knee was then exposed using a standard medial parapatellar approach. A small cuff of quadriceps tendon was then left for suturing. He was in a bit of varus preoperatively. A standard medial release was then made. Superficial medial collateral ligament was dissected off the bone around to the posterior aspect of the proximal tibia. The medial meniscus was then excised as well. The lateral meniscus was also released anteriorly. The leg was then externally rotated. The patella was everted. The knee was flexed. Retractors were then placed to protect the collateral ligaments. I then proceeded to remove the infrapatellar fat pad. This was excised sharply tangentially with fibers of the patellar tendon. I then proceeded to remove the peripheral osteophytes. This was done with a rongeur. I then proceeded with the distal femoral resection. He did have near full extension. A planned 9 mm resection was then done. The femoral canal was then entered in the midline of the femur approximately 10 mm anterior to the origin of the posterior cruciate ligament. The jarett was then advanced on the center of the femur and placed intramedullary. Based on the preoperative radiographs, the angle between the anatomic and mechanical axis of the femur was approximately 4 to 5 degrees. The valgus angle of the distal femoral cutting guide was then set at 4 degrees for the right knee. The distal femoral cutting guide was then advanced over the intramedullary jarett. This was seated firmly against the femur. Then, as mentioned, planned to take 9 mm off the distal femur. The cutting block was then secured onto the femur with pins. The jig was then removed. The distal cut was made through the slot of the block. The pins were then removed and the distal femoral cutting block was removed. The accuracy of the distal femoral cuts was checked with 2 flat bars. I then proceeded with femoral sizing. Posterior referencing sizing guide was held firmly against the resected distal surface of the femur. The posterior condyles were resting on the posterior plane of the guide. The sizing stylus was then placed on the anterior femur. The size was measured as a size 11. I then assessed for femoral rotation. The plan was for 3 degrees of external rotation. Three degrees of external rotation was placed onto the jig. These holes were then marked. I then confirmed the rotation by 3 separate methods. This was done using the epicondylar axis as well as [place]'s line and posterior referencing. It was deemed that the external rotation was proper. I then went forward with placement of the femoral cutting block. This was placed over the previously placed pin holes. The [place] wing was then placed on the anterior slots to ensure that we would not notch the anterior femur at the anterior femoral cut. I then proceeded with the anterior femoral cut. This was flushed with the anterior cortex of the femur. The posterior cuts were then made followed by the anterior chamfer cut, then the posterior chamfer cut. The cutting block was then removed. Throughout the resection, the collateral ligaments were protected with retractors. I then placed a trial size 11 femur. It fit very nice mediolateral and fit flush with the distal end of the femur. The drill hole was then made. I then proceeded with the tibial cut. I planned for cruciate-retaining knee. The guide was placed and set for varus and valgus and for slope. The height was set for approximately 2 mm resection from the medial tibial plateau, which was the lower side. I was happy with the alignment and the amount of resection. The cutting block was then pinned to the proximal tibia. The alignment jarett was removed and the proximal tibia was resected with a reciprocating saw. Again, this was done with retractors protecting the collateral ligaments as well as the posterior cruciate ligament. I then proceeded to evaluate the flexion and extension gaps. A 10 mm block was then placed. The flexion and extension gaps were equal. I then proceeded with resection of the posterior osteophytes. He had a fairly extensive posterior osteophytes. This was done using a curved osteotome. This resected the posterior osteophytes, and the posterior capsular stripping was done off the posterior aspect of the femur at this time. The osteophytes were then removed. I then proceeded with resection of the patella. The thickness of the patella was measured using the caliper. The thickness was 26 mm. The thickness of the anticipated patellar dome was taken into account. The resection was then performed and confirmed to be equal in 4 quadrants using a caliper. Approximately 14 mm of bone remained after resection. A 35 x 9 standard patellar trial was then placed. The holes were drilled and the trial was then placed. I then proceeded with sizing the tibial plate. A size G tibial plate fit very nicely. I then placed the trial femur, the tibial tray, and the patellar button. A 10 mm trial tibial insert was also placed. The components fit very nicely. He had full extension and flexion. The extension and flexion gaps were equal and stable to both varus and valgus stress. The patella tracked appropriately. The tibial tray rotation was then marked with a Bovie. This was externally rotated properly. I then proceeded with tibial preparation. I first drilled the femoral holes and removed the femoral component. The tibial tray was then set for proper external rotation as well as medial lateral placement onto the tibia. It was then pinned into place. I then proceeded with punching the keel. I then decided to proceed with cementing of all our components. The knee was thoroughly irrigated with sterile saline solution via pulse lavage. The lateral genicular artery was identified and cauterized. All blood was removed from the bone of the tibia, femur, and patella with pulse lavage. I then proceeded with cementing. Two packs of antibiotic bone cement prepared on the back table by surgical services assistant. I then proceeded with cementing the tibia first. The cement was impacted into the keel as well as deeply seated in the bone. A second coat of cement was then placed. The tibia was then impacted into place. Excess cement was removed with Na's and Jokers. I then proceeded with cementing of the femoral component. The femoral component was also cemented using standard technique. Excess cement was removed. A 10 mm trial insert was then placed into the knee. It was brought into full extension with a constant axial load placed until the cement had hardened. The patellar component was then cemented. This held firmly with a compressive device until the cement had dried. When the cement had dried, the knee was taken out of extension. All excess cement was removed from around the prosthesis. I then trialed with a 10 mm insert. Flexion and extension gaps were appropriate. The knee was stable. It came into full extension. I decided to go forward with a 10 mm Medial Congruent cross-linked cruciate-retaining tibial insert. Polyethylene was then placed on the tibial tray and locked into place. The knee was then reduced. The knee was again further irrigated with sterile saline solution with antibiotic added. The tourniquet was then deflated. Total tourniquet time for the procedure was 50 minutes at 250 mmHg. Final components were Devon Persona size 11 cruciate-retaining femoral component, size G tibial tray, a 10 mm medial congruent cruciate-retaining polyethylene insert, and a 35 x 9 mm patella. I then proceeded with closure. Again, the knee was thoroughly irrigated. The quadriceps tendon and the medial retinaculum were reapproximated with a #2 Ethibond suture. The extensor mechanism was then closed with a running #2 Quill suture. Subcutaneous tissues were closed with 2-0 Vicryl interrupted suture. The skin was closed with a running 3-0 Quill suture. Dermabond was applied to the incision. Sterile compressive dressings were applied. All sponge and needle counts were deemed correct prior to closure. The patient tolerated the procedure without apparent complication. He was transferred to the recovery room in stable condition. MMMARKOSL / SPENSERN: [id number] /
[2023-06-20] MEDS: GABAPENTIN 400 MG CAP PO STA (11:51)
[2023-06-20] MEDS: diazePAM 5 MG TAB PO PRN (14:14)
--- NOTE | 2023-06-20 15:52 | P.CONS ---
History of Present Illness - Reason for Consult Consult date: 06/20/23 Requesting physician: Uday Lamb - Chief Complaint knee pain - History of Present Illness Patient is a 67-year-old male with past medical history of BPH, chronic pain, and prior DVT after leg injury who presented to the hospital for elective right total knee arthroplasty. He tolerated the procedure well. He was having some postoperative pain. Patient seen and examined at bedside. He denies any chest pain, shortness of breath, nausea, vomiting. He denies any recent cough, cold, fever, flu. He does complain of 10 out of 10 right knee pain. He reports he did not take his gabapentin last evening. His DVT was in 1992 after an injury to his leg. He has not had any blood clots with other surgeries including his left total knee which was done approximately 1 year ago. Vital signs reviewed General: nontoxic, no distress, appears at stated age Derm: warm, dry ENT: Nose and ears atraumatic Cardiovascular: S1S2 reg, no murmur, no edema Lungs: clear to auscultation bilateral, no rhonchi, no rales, no wheeze, no accessory muscle use Abdominal: soft, nontender to palpation, no guarding Ext: no gross muscle atrophy, no contractures, right knee with Freddy wrap in place Neuro: CN II-XII grossly intact, No focal neuro deficits Psych: Alert, oriented, appropriate affect Assessment/Plan: 67-year-old male status post right total knee arthroplasty. Elevated blood pressures without diagnosis of hypertension -Likely mediated by pain. -Continue to follow blood pressures -Continue to utilize Dilaudid, Valium, and Percocet as needed for pain -Give Gabapentin 400 mg p.o. x 1 now then resume 1200 mg at night. Dyslipidemia -Lipitor 40 mg at night BPH -Flomax 0.4 mg at night and Proscar 5 mg at night Imaging: None new Data Review: Preop labs reviewed and hemoglobin 14.4, creatinine 0.8 Thank you for allowing us to participate in the care of this pleasant patient. Do not hesitate to contact us with questions. Someone can be reached from the [facility] hospitalist group all hours of the day at [phone] or via [email or web address]. This dictation was prepared using [employer] voice recognition software. Though every attempt is made to correct errors during dictation some may still exist. . Past Medical History Past Medical History: Deep Vein Thrombosis (DVT), Hyperlipidemia, Osteoarthritis (OA), Prostate Disorder Additional Past Medical History / Comment(s): hx. DVT in 1992, back problems, hx. colon polyps, BPH History of Any Multi-Drug Resistant Organisms: None Reported Past Surgical History: Appendectomy, Joint Replacement, Orthopedic Surgery, Tonsillectomy Additional Past Surgical History / Comment(s): LEFT KNEE ARTHROSCOPY IN 07/08/22. Arthroscopy knee Past Anesthesia/Blood Transfusion Reactions: No Reported Reaction Date of Last Stent Placement:: 2018 Past Psychological History: Depression Smoking Status: Never smoker Past Alcohol Use History: Occasional Past Drug Use History: Marijuana Additional Drug Use History / Comment(s): daily use - Past Family History Father Family Medical History: Cancer Additional Family Medical History / Comment(s): MESOTHELIOMA Mother Additional Family Medical History / Comment(s): CARDIAC VALVE DISORDER Sister(s) Family Medical History: Cancer Additional Family Medical History / Comment(s): PANCREATIC CA. THYROID CA Medications and Allergies Home Medications Medication Instructions Recorded Confirmed Type HYDROcodone/APAP 10-325MG [[place] 1 tab PO Q6H PRN 12/06/15 06/18/23 History 10-325] Tamsulosin [Flomax] 0.4 mg PO HS 12/06/15 06/18/23 History tiZANidine [Zanaflex] 4 mg PO DIRECTED PRN 12/06/15 06/18/23 History Atorvastatin [Lipitor] 40 mg PO HS 07/30/22 06/18/23 History DULoxetine HCL [Cymbalta] 60 mg PO HS 07/30/22 06/18/23 History Finasteride [Proscar] 5 mg PO HS 07/30/22 06/18/23 History Gabapentin [Neurontin] 3 tab PO HS 07/30/22 06/18/23 History methocarbamoL 750 mg PO DAILY PRN 07/30/22 06/18/23 History Celecoxib [CeleBREX] 200 mg PO QAM 08/02/22 06/18/23 History Allergies Allergy/AdvReac Type Severity Reaction Status Date / Time codeine Allergy Rash/Hives Verified 06/20/23 05:45 Physical Exam Osteopathic Statement: *. No significant issues noted on an osteopathic structural exam other than those noted in the History and Physical/Consult. Vitals: Vital Signs Temp Pulse Resp BP BP Pulse Ox 06/20/23 14:00 97.7 F 76 19 143/95 95 06/20/23 10:05 97.6 F 64 17 156/93 99 06/20/23 09:31 60 16 160/89 98 06/20/23 09:17 63 16 156/91 99 06/20/23 09:01 97.3 F L 65 16 137/97 98 06/20/23 06:50 62 16 113/74 98 06/20/23 05:50 98.0 F 72 16 140/93 97 Intake and Output 06/20/23 06/20/23 06/20/23 06:59 14:59 22:59 Intake Total 500 751 Output Total 100 Balance 500 651 Intake: IV 500 751 Output: Estimated Blood Loss 100 Other: Weight 96.2 kg 96.2 kg
[2023-06-20] MEDS: ASPIRIN 81 MG PO SCH (20:00)
[2023-06-20] MEDS: TAMSULOSIN 0.4 MG CAP.ER.24H PO SCH (20:00)
[2023-06-20] MEDS: FINASTERIDE 5 MG TAB PO SCH (20:00)
[2023-06-20] MEDS: DULoxetine HCL 60 MG CAPSULE.DR PO SCH (20:00)
[2023-06-20] MEDS: ATORVASTATIN 40 MG TAB PO SCH (20:00)
[2023-06-20] MEDS: SENNOSIDES-DOCUSATE SODIUM 1 EACH TAB PO SCH (20:00)
[2023-06-20] MEDS: GABAPENTIN 400 MG CAP PO SCH (20:01)
[2023-06-21] MEDS: traMADol 50 MG TAB PO PRN (08:06)
[2023-06-21 08:52] LABS: Basophils % (A) 0 %; Eosinophils % (A) 1 %; HCT 39.6 % (39.0-53.0); Lymphocytes # (A) 1.9 k/uL (1.0-4.8); Lymphocytes % (A) 26 %; MCH 31.3 pg (25.0-35.0); MCHC 32.9 g/dL (31.0-37.0); MCV 95.2 fL (80.0-100.0); Mean Platelet Volume 7.8; Monocytes # (A) 0.4 k/uL (0-1.0); Monocytes % (A) 6 %; Neutrophils # (A) 4.9 k/uL (1.3-7.7); Neutrophils % (A) 67 %; Platelet Count 196 k/uL (150-450); RBC 4.16 m/uL (4.30-5.90); RDW 13.5 % (11.5-15.5); WBC 7.4 k/uL (3.8-10.6)
[2023-06-21] MEDS: MULTIVITAMINS, THERA 1 EACH TAB PO SCH (12:41)
[2023-06-21] MEDS ORDERED: oxyCODONE-APAP 10-325MG 1 EACH TAB PO PRN (13:20)
[2023-06-21] MEDS: oxyCODONE ER 10 MG TAB.ER.12H PO SCH (13:40)
--- NOTE | 2023-06-21 13:56 | P.PN ---
Subjective Progress Note Date: 06/21/23 Principal diagnosis: Right TKA Patient is seen at bedside this morning. He is postop day #1 from right total knee arthroplasty. He has pain at the surgical site as expected but denies any new complaints. He denies numbness, tingling or calf pain. Review of systems is negative for fever, chills, chest pain, shortness of breath or other Objective - Vital Signs Vital signs: Vital Signs Temp 97.9 F 06/21/23 07:35 Pulse 64 06/21/23 07:35 Resp 20 06/21/23 07:35 BP 162/82 06/21/23 07:35 Pulse Ox 95 06/21/23 07:35 FiO2 Intake & Output 06/20/23 06/21/23 06/21/23 18:59 06:59 18:59 Intake Total 751 1300 Output Total 1100 3200 300 Balance -349 -1900 -300 Weight 96.2 kg Intake: IV 751 Intake, IV Titration 1300 Amount Lactated Ringers 1,000 ml 1200 @ 100 mls/hr IV .Q10H WISAM Rx#:[id number] ceFAZolin 2 gm In Sodium 100 Chloride 0.9% 50 ml @ 100 mls/hr IVPB Q8HR WISAM Rx# :[id number] Output: Urine 1000 3200 300 Estimated Blood Loss 100 Other: Voiding Method Urinal - Exam Inspection reveals a benign surgical wound. There is no active bleeding or drainage. Neurovascular status is intact throughout the lower extremity with motor and sensation fully intact. Calf is soft and nontender. 2+ dorsalis pedis pulse and less than 2 second cap refill is present. - Constitutional General appearance: Present: no acute distress - Labs CBC & Chem 7: 06/21/23 07:58 Labs: Abnormal Lab Results - Last 24 Hours (Table) 06/21/23 Range/Units 07:58 RBC 4.16 L (4.30-5.90) m/uL Assessment and Plan (1) Osteoarthritis of right knee Narrative/Plan: He will continue with routine postop orthopedic protocol including pain management, wound care, PT, DVT prophylaxis and medical management. We will adjust his pain meds to try to get better control. Expect that he will transfer to home tomorrow Current Visit: Yes Status: Acute Priority: Medium Code(s): M17.11 - UNILATERAL PRIMARY OSTEOARTHRITIS, RIGHT KNEE SNOMED Code(s): 916456316901981 Time with Patient: Less than 30
--- NOTE | 2023-06-21 15:47 | P.PN ---
Subjective Progress Note Date: 06/21/23 (delayed charting seen at 1005) Patient is a 67-year-old male with past medical history of BPH, chronic pain, and prior DVT after leg injury who presented to the hospital for elective right total knee arthroplasty. He tolerated the procedure well. He was having some postoperative pain. Patient seen and examined at bedside. No chest pain, SOB, nausea, or vomiting. Vital signs reviewed General: Nontoxic, no distress, appears at stated age Cardiovascular: S1S2 reg, no murmur Lungs: CTA bilateral, no rhonchi, no rales, no accessory muscle use Ext: Freddy wrap over right knee Neuro: CN II-XI grossly intact, no focal neuro deficits Psych: Alert, oriented, appropriate affect Assessment/Plan: 67-year-old male status post right total knee arthroplasty. Elevated blood pressures without diagnosis of hypertension - due to pain. - d/w patient to follow with PCP after discharge for BP check to ensure BP normalizes. Added to discharge tab. Dyslipidemia -Lipitor 40 mg at night BPH -Flomax 0.4 mg at night and Proscar 5 mg at night - home meds adressed on discharge tab. Patient will be staying one more night for discharge. Will sign off, please call if other concerns araise during his hospial stay. Imaging: None Data Review: CBC reviewed and unremarkable. This dictation was prepared using [employer] voice recognition software. Though every attempt is made to correct errors during dictation some may still e xist. Objective - Vital Signs Vital signs: Vital Signs Temp 97.9 F 06/21/23 07:35 Pulse 64 06/21/23 07:35 Resp 20 06/21/23 07:35 BP 162/82 06/21/23 07:35 Pulse Ox 95 06/21/23 07:35 FiO2 Intake & Output 06/20/23 06/21/23 06/21/23 18:59 06:59 18:59 Intake Total 751 1300 Output Total 1100 3200 300 Balance -349 -1900 -300 Weight 96.2 kg Intake: IV 751 Intake, IV Titration 1300 Amount Lactated Ringers 1,000 ml 1200 @ 100 mls/hr IV .Q10H [facility] Rx#:[id number] ceFAZolin 2 gm In Sodium 100 Chloride 0.9% 50 ml @ 100 mls/hr IVPB Q8HR W[facility]AM Rx# :[id number] Output: Urine 1000 3200 300 Estimated Blood Loss 100 Other: Voiding Method Urinal - Labs CBC & Chem 7: 06/21/23 07:58 Labs: Abnormal Lab Results - Last 24 Hours (Table) 06/21/23 Range/Units 07:58 RBC 4.16 L (4.30-5.90) m/uL
[2023-06-21] MEDS: oxyCODONE-APAP 10-325MG 1 EACH TAB PO PRN (16:12)
[2023-06-21 18:19] LABS: Glucose,Whole Blood 159 mg/dL (70-110)
[2023-06-22 09:19] VITALS: BP 117/75; PULSE 95; RESP 18; TEMP 98.5
--- NOTE | 2023-06-22 09:19 | P.DS ---
Providers Date of admission: 06/21/23 14:00 Expected date of discharge: 06/22/23 Attending physician: Uday Lamb Primary care physician: Tucker Oswald - Discharge Diagnosis(es) (1) Osteoarthritis of right knee Current Visit: Yes Status: Acute Priority: Medium (2) Status post total right knee replacement Current Visit: Yes Status: Acute Hospital Course: This is a pleasant 67-year-old male last seen in our office with complaints of right knee pain. Patient has known history of degenerative arthritis of the right knee and presented to discuss options. After discussion and consideration, patient elected to proceed with a total knee arthroplasty of the right knee. The patient was seen preoperatively and medically cleared for surgery by his primary care physician. The patient was admitted to [facility] and underwent right total knee arthroplasty on 06/20/[address] Lamb. The procedure was performed without complications or sequelae. The patient has done well postoperatively. The patient was seen and evaluated at bedside today and denies any new complaints. Pain is reasonably controlled. Dressing is clean dry and intact. Incision looks fine with no erythema or active drainage. Calf is soft and nontender. The patient has full foot and ankle motion without difficulty. Patient's right lower extremity is neurovascular intact. Patient is orthopedically stable for discharge to home today. Pertinent Studies: Laboratory Tests 06/21/23 06/21/23 07:58 18:18 WBC 7.4 Hgb 13.0 Hct 39.6 MCV 95.2 POC Glucose (mg/dL) 159 H Patient Condition at Discharge: Stable Plan - Discharge Summary Discharge Rx Participant: Yes New Discharge Prescriptions: New Docusate [Colace] 100 mg PO BID #60 capsule Ondansetron [Zofran] 4 mg PO Q8HR PRN #21 tab PRN Reason: Nausea oxyCODONE HCL/ACETAMINOPHEN [Percocet 7.5-325 mg] 1 - 2 tab PO Q4-6H PRN 3 D ays #32 tab PRN Reason: Pain Aspirin [Adult Low Dose Aspirin EC] 81 mg PO BID #60 tab Continue Tamsulosin [Flomax] 0.4 mg PO HS Gabapentin [Neurontin] 3 tab PO HS DULoxetine HCL [Cymbalta] 60 mg PO HS Atorvastatin [Lipitor] 40 mg PO HS Finasteride [Proscar] 5 mg PO HS No Action tiZANidine [Zanaflex] 4 mg PO DIRECTED PRN PRN Reason: Muscle Spasm HYDROcodone/APAP 10-325MG [[place] 10-325] 1 tab PO Q6H PRN PRN Reason: Pain methocarbamoL 750 mg PO DAILY PRN PRN Reason: Pain Celecoxib [CeleBREX] 200 mg PO QAM Discharge Medication List HYDROcodone/APAP 10-325MG [[place] 10-325] 1 tab PO Q6H PRN 12/06/15 [History] Tamsulosin [Flomax] 0.4 mg PO HS 12/06/15 [History] tiZANidine [Zanaflex] 4 mg PO DIRECTED PRN 12/06/15 [History] Atorvastatin [Lipitor] 40 mg PO HS 07/30/22 [History] DULoxetine HCL [Cymbalta] 60 mg PO HS 07/30/22 [History] Finasteride [Proscar] 5 mg PO HS 07/30/22 [History] Gabapentin [Neurontin] 3 tab PO HS 07/30/22 [History] methocarbamoL 750 mg PO DAILY PRN 07/30/22 [History] Celecoxib [CeleBREX] 200 mg PO QAM 08/02/22 [History] Aspirin [Adult Low Dose Aspirin EC] 81 mg PO BID #60 tab 06/21/23 [Rx] Docusate [Colace] 100 mg PO BID #60 capsule 06/21/23 [Rx] Ondansetron [Zofran] 4 mg PO Q8HR PRN #21 tab 06/21/23 [Rx] oxyCODONE HCL/ACETAMINOPHEN [Percocet 7.5-325 mg] 1 - 2 tab PO Q4-6H PRN 3 Days #32 tab 06/22/23 [Rx] Follow up Appointment(s)/Referral(s): Tucker Oswald MD [Primary Care Provider] - 1 Week [facility], [NON-STAFF] - 1-2 Days ([facility] will call you to schedule your in home physical therapy visits. ) Uday Lamb MD [STAFF PHYSICIAN] - 10 Days Activity/Diet/Wound Care/Special Instructions: WBAT keep wound clean and dry take meds as directed f/u in office may shower in 3 days if no bleeding Please follow with Dr. Oswald after discharge your blood pressure was mildly elevated and this is likely due to pain, but you should be a blood pressure recheck in the next 1-2 weeks. Discharge Disposition: HOME WITH HOME HEALTH SERVICES
--- NOTE | 2023-06-24 19:50 | P.ANPRN ---
Procedure Note - Anesthesia - Nerve Block Performed Right Adductor Canal Infusion Time Out Performed: Yes Date of Procedure: 06/20/23 Procedure Start Time: 06:43 Procedure Stop Time: 06:51 Location of Patient: PreOp Indication: Acute Post-Operative Pain, Requested by Surgeon Sedation Type: Sedate with meaningful contact maintained Preparation: Sterile Prep, Sterile Dressing Position: Supine Catheter: Indwelling Needle Types: Pajunk Needle Gauge: 21 Ultrasound used to visualize needle placement: Yes Ultrasound used to observe medication spread: Yes Blood Aspirated: No Pain Paresthesia on Injection Noted: No Resistance on Injection: Normal Image Stored and Saved: Yes Events: Uneventful and Well Tolerated (Ropivacaine 0.5% 20 cc plus dexamethasone 4 mg)
--- NOTE | 2023-06-24 19:51 | P.ANPRN ---
Procedure Note - Anesthesia - Nerve Block Performed Right iPack Single Time Out Performed: Yes Date of Procedure: 06/20/23 Procedure Start Time: 06:52 Procedure Stop Time: 06:55 Location of Patient: PreOp Indication: Acute Post-Operative Pain, Requested by Surgeon Sedation Type: Sedate with meaningful contact maintained Preparation: Sterile Prep Position: Supine Needle Types: Pajunk Needle Gauge: 21 Ultrasound used to visualize needle placement: Yes Ultrasound used to observe medication spread: Yes Blood Aspirated: No Pain Paresthesia on Injection Noted: No Resistance on Injection: Normal Image Stored and Saved: Yes Events: Uneventful and Well Tolerated (Ropivacaine 0.5% 20 cc plus dexamethasone 4 mg)
== END 2023-06-22 12:30 | disposition home health service (06) ==
LOC: OR 05:33 → 4SSUR 08:57 → OR 06-21 14:00
PROVIDERS: ADMIT Orthopaedic Surgery Sports Medicine; ATTEND Orthopaedic Surgery Sports Medicine
DX: M17.11 Unilateral primary osteoarthritis, right knee (principal); E78.5 Hyperlipidemia, unspecified; N40.0 Benign prostatic hyperplasia without lower urinary tract symptoms; Z79.899 Other long term (current) drug therapy; Z88.5 Allergy status to narcotic agent
CPT/HCPCS: 27447; 97116; 97161; 64999; 64448; 85025; 73560; G0378 ×2; C1776; C1713; C1751; S0138 ×2; J2250; J1100; J0690 ×2; J2405; J2795; J1170